=== PATIENT | female | born 1995 | race Caucasian/White ===

== ENCOUNTER 2020-06-19 13:31 | Outpatient (REF) | payer MEDICARE, MEDICAID, SELFPAY | END 2020-06-19 13:32 | disposition home or self-care (01) | LOC: HO.LAB 13:31 | PROVIDERS: PCP Internal Medicine; Visit Provider Internal Medicine | DX: Z20.828 Contact with and (suspected) exposure to other viral communicable diseases (principal) | CPT/HCPCS: 87635 ==

== ENCOUNTER 2021-04-06 15:58 | Outpatient (REF) | payer MEDICARE, MEDICAID, SELFPAY ==
[2021-04-06 18:02] LABS: Glucose Urine UA NEG (NEG); Leukocyte Esterase Urine 1+ (NEG); Nitrite Urine NEG (NEG); Specific Gravity - Urine <= 1.005 (1.005-1.025); UACC Culture Trigger YES; Urine Blood TRACE (NEG); Urine Ketones NEG (NEG); Urine Protein NEG (NEG-TRACE)
[2021-04-06 18:11] LABS: Appearance Urine CLEAR; Color Urine STRAW
[2021-04-06 19:04] LABS: RBC Urine 0-2 /HPF (0); Squamous Epithelial Cell Urine TRACE /LPF
== END 2021-04-06 15:59 | disposition home or self-care (01) ==
LOC: HO.LAB 15:58
PROVIDERS: Visit Provider Internal Medicine
DX: R30.0 Dysuria (principal)
CPT/HCPCS: 81001; 81003; 87086

== ENCOUNTER 2021-08-11 13:19 | Outpatient (REF) | payer MEDICARE, MEDICAID, SELFPAY ==
[2021-08-11 14:56] LABS: Alanine Aminotransferase 31 U/L (0-31); Anion Gap 13 (12-20); Aspartate Amino Transferase 24 U/L (5-31); Blood Urea Nitrogen 10 mg/dL (9-16); Calcium 9.3 mg/dL (8.4-10.2); Carbon Dioxide 19 mmol/L (22-29); Chloride 111 mmol/L (96-108); Cholesterol 182 mg/dL; Estimated Glomerular Filt Rate > 60; Glucose Fasting 84 mg/dL (60-99); HDL Cholesterol 40 mg/dL; LDL Cholesterol Calculated 99 mg/dl; Sodium 139 mmol/L (135-145); Triglycerides 215 mg/dL
== END 2021-08-11 13:20 | disposition home or self-care (01) ==
LOC: HO.HMGCLDS 13:19
PROVIDERS: PCP Internal Medicine; Visit Provider Internal Medicine
DX: Z00.01 Encounter for general adult medical examination with abnormal findings (principal); F31.9 Bipolar disorder, unspecified; G40.B09 Juvenile myoclonic epilepsy, not intractable, without status epilepticus; I10 Essential (primary) hypertension; E66.9 Obesity, unspecified
CPT/HCPCS: 36415; 80048; 80061; 82306; 84450; 84460

== ENCOUNTER 2022-06-15 10:52 | Outpatient (REF) | payer MEDICARE, MEDICAID, SELFPAY ==
--- NOTE | ~2022-06-15 | XR_ITS ---
EXAMINATION: XR CHEST CLINICAL INFORMATION: Bronchitis COMPARISON: None TECHNIQUE: 2 views of the chest were obtained. FINDINGS: Low lung volumes. No convincing evidence for infiltrate. Lung rodrigues are grossly clear. The cardiac silhouette is within normal limits. The hilar structures do not appear pathologically enlarged. XR/XR chest 2V IMPRESSION: No acute finding.
== END 2022-06-15 10:53 | disposition home or self-care (01) ==
LOC: HO.HMGCX 10:52
PROVIDERS: PCP Internal Medicine; Visit Provider Internal Medicine
DX: J20.9 Acute bronchitis, unspecified (principal)
CPT/HCPCS: 71046

== ENCOUNTER 2022-08-25 09:32 | Outpatient (REF) | payer MEDICARE, MEDICAID, SELFPAY ==
[2022-08-25 13:17] LABS: Alanine Aminotransferase 39 U/L (0-31); Anion Gap 12 (12-20); Aspartate Amino Transferase 32 U/L (5-31); Blood Urea Nitrogen 13 mg/dL (9-16); Calcium 8.9 mg/dL (8.4-10.2); Carbon Dioxide 19 mmol/L (22-29); Chloride 112 mmol/L (96-108); Cholesterol 169 mg/dL; Estimated Glomerular Filt Rate > 60; Glucose Fasting 90 mg/dL (60-99); HDL Cholesterol 38 mg/dL; LDL Cholesterol Calculated 104 mg/dl; Potassium 4.1 mmol/L (3.3-5.1); Sodium 139 mmol/L (135-145); Triglycerides 136 mg/dL
== END 2022-08-25 09:33 | disposition home or self-care (01) ==
LOC: HO.LAB 09:32
PROVIDERS: PCP Internal Medicine; Visit Provider Internal Medicine
DX: Z00.01 Encounter for general adult medical examination with abnormal findings (principal); E55.9 Vitamin D deficiency, unspecified; E66.01 Morbid (severe) obesity due to excess calories; E78.5 Hyperlipidemia, unspecified; H91.93 Unspecified hearing loss, bilateral; F31.9 Bipolar disorder, unspecified; G40.B09 Juvenile myoclonic epilepsy, not intractable, without status epilepticus
CPT/HCPCS: 36415; 80048; 80061; 82306; 84450; 84460

== ENCOUNTER 2023-04-04 15:06 | Outpatient (AMB) | payer MEDICARE, MEDICAID, SELFPAY ==
[2023-04-04 15:27] VITALS: BMI 43.3
--- NOTE | 2023-04-04 15:27 | MHC.OFFVIS ---
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 Pt states that Left LE foot gets very swollen and has pain w/ ambulation worse over 3 months. 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 She notes that it is more so in the calf and ankles. Left more so than right. Denies any history of trauma. She notes that she does have some swelling. In general she leads a sedentary lifestyle. Mostly in her bed in a residential. She now presents for evaluation regarding her swollen extremities. [facility] Medical History Annual visit for general adult medical examination with abnormal findings Bipolar disorder Dyslipidemia Former smoker, stopped smoking in distant past Juvenile myoclonic epilepsy PTSD (post-traumatic stress disorder) Vitamin D deficiency Surgical History No pertinent past surgical history Social History Housing: Other Patient Tobacco Use Status: Former Tobacco user Cigarettes Per Day: 4 e-Cigarette/Vaping Use: Never Used Current occupational status: employed Current occupation: Works at [employer] Current occupational exposures/hazards: No Cognitive needs: No Hearing needs: No Vision needs: No Review of Systems Const All systems reviewed & are unremarkable except as noted in HPI and below Reports no additional complaints ENT Reports Normal hearing present Card Denies chest pain, Denies chest pain at rest, Denies chest pain with activity and Denies pedal edema Resp Denies cough GI Denies abdominal pain Musc Denies abnormal gait, Denies muscle cramps and Denies radiating pain into limb Skin/Breast Denies skin ulcer and Denies wounds Neuro Reports Normal hearing present and Denies abnormal gait Psych Reports no additional complaints Physical Exam Vital Signs: BMI result Body Mass Index 43.3 Const General: cooperative, healthy appearing and comfortable Orientation/consciousness: oriented to person, oriented to place and oriented to time HEENT Head: Yes normal to inspection Neck Neck: Yes normal visual inspection Carotids: no bruits Chest Chest palpation & inspection: normal inspection of the chest Resp Effort & Inspection: normal respiratory effort and able to speak in complete sentences Auscultation: clear to auscultation bilaterally, no crackles, no rales, no rhonchi and no wheezes Cardio Other: Palpable bilateral DP pulses Rate: regular rate Rhythm: regular rhythm Heart sounds: S1 normal heart sound present and S2 normal heart sound present Bruits: no carotid bruits Peripheral pulses: Peripheral pulses 2+ throughout GI Inspection: Yes normal to inspection Skin Wounds: no wounds Hair: normal Neuro General: oriented to person, oriented to place and oriented to time Cranial nerves: Yes CN's II-XII intact bilaterally and Yes Normal hearing present Cognition (Neuro): normal cognition Motor exam (neuro): 5/5 motor strength present throughout Extrem Other: venous exam: +2 edema left greater than right General: No clubbing, No cyanosis and Yes edema Psych Appearance: grossly normal Mental Status: mental status grossly normal Speech and movement: Normal speech and movement present Assessment & Plan Assessment & Plan (1) Varicose veins of left lower extremity with inflammation: Code(s): I83.12 - Varicose veins of left lower extremity with inflammation Plan: In short patient has swollen lower extremities. Unclear what the true etiology of this is and may be related more to her morbid obesity and inactivity. But I have taken the liberty of ordering venous insufficiency testing to rule that out. Should there be any interval issues happy to see her back sooner. Thank you for allowing us to assist in her care. If there are any questions or concerns please do not hesitate to contact us. Orders: Orders US venous duplex LE 1 Week I83.92 - Asymptomatic varicose veins of left lower extremity Coding Level of Care Code New Pt Level 4 (14971) Diagnoses Varicose veins of left lower extremity with inflammation I83.12
== END 2023-04-04 15:44 | disposition home or self-care (01) ==
PROVIDERS: PCP Internal Medicine; Visit Provider Surgery Vascular Surgery
DX: I83.12 Varicose veins of left lower extremity with inflammation (principal)
CPT/HCPCS: 99204

== ENCOUNTER → 2023-04-04 15:06 | Outpatient (BNVA) | payer MEDICARE, MEDICAID, SELFPAY | PROVIDERS: PCP Internal Medicine; Visit Provider Surgery Vascular Surgery | DX: I83.12 Varicose veins of left lower extremity with inflammation (principal); E66.01 Morbid (severe) obesity due to excess calories; Z68.41 Body mass index [BMI] 40.0-44.9, adult | CPT/HCPCS: 99202 ==

== ENCOUNTER 2023-04-24 13:18 | Outpatient (REF) | payer MEDICARE, MEDICAID, SELFPAY ==
--- NOTE | ~2023-04-24 | US_ITS ---
EXAMINATION: US LOWER EXTREMITY VENOUS (REFLUX EXAM), BILATERAL CLINICAL INDICATION: Varicose veins of the left lower extremity COMPARISON: None. TECHNIQUE: Color flow triplex imaging and compression Doppler was performed to evaluate both the deep and the superficial systems bilaterally. To evaluate the superficial system, the examination was performed in the upright position. Color-flow Doppler ultrasound and compression ultrasound were utilized. In addition, maneuvers were utilized to demonstrate reflux. FINDINGS: RIGHT: 1. DEEP VENOUS ULTRASOUND OF THE RIGHT LOWER EXTREMITY: Common Femoral Vein: Compressible, normal respiratory variation and augmented flow. Popliteal Vein: Compressible, normal augmentation. Deep Venous Reflux: There is no evidence of reflux in the deep system in either the common femoral vein or the popliteal vein. There is no evidence of a Knott's cyst. 2. SUPERFICIAL ULTRASOUND WITH DOPPLER OF RIGHT LOWER EXTREMITY: RIGHT GREAT SAPHENOUS VEIN: Saphenofemoral Junction: 10 mm. No reflux. Proximal Thigh: 5 mm. No reflux. Mid Thigh: 5 mm. No reflux. Above Knee: 6 mm. No reflux. Below Knee: 4 mm. No reflux. Mid Calf: 3 mm. No reflux. Ankle: 4 mm. No reflux. DUPLICATED GREAT SAPHENOUS VEIN: None RIGHT SMALL SAPHENOUS VEIN: Proximal: 3 mm. No reflux. Distal: 3 mm. No reflux. PERFORATORS: None LEFT: 1. DEEP VENOUS ULTRASOUND OF THE LEFT LOWER EXTREMITY: Common Femoral Vein: Compressible, normal respiratory variation and augmented flow. Popliteal Vein: Compressible, normal augmentation. Deep Venous Reflux: There is no evidence of reflux in the deep system in either the common femoral vein or the popliteal vein. Incidentally noted popliteal cyst measuring 1.8 x 1.3 x 2.1 cm. 2. SUPERFICIAL ULTRASOUND WITH DOPPLER OF LEFT LOWER EXTREMITY: LEFT GREAT SAPHENOUS VEIN: Saphenofemoral Junction: 12 mm. No reflux. Proximal Thigh: 6 mm. No reflux. Mid Thigh: 5 mm. No reflux. Above Knee: 5 mm. No reflux. Below Knee: 3 mm. No reflux. Mid Calf: 3 mm. No reflux. Ankle: 3 mm. No reflux. DUPLICATED GREAT SAPHENOUS VEIN: None LEFT SMALL SAPHENOUS VEIN: Proximal: 2 mm. No reflux. Distal: 3 mm. No reflux. PERFORATORS: None US/US venous duplex LE BI IMPRESSION: 1. Small bilateral varicosities seen without abnormal reflux within the great or small saphenous veins. 2. Incidentally noted left popliteal cyst measuring 1.8 x 1.3 x 2.1 cm. Abnormal lower extremity venous reflux times: Superficial and deep calf veins: >500 ms Femoropopliteal veins: >1000 ms Perforating veins: >350 ms Sharron N, Elizabeth J, Wing L, Christin AK, Haroon SS, Venkata Spencer, Hedy WH. Definition of venous reflux in lower-extremity veins.J Vasc Surg. 2003; [phone].
== END 2023-04-24 13:19 | disposition home or self-care (01) ==
LOC: HO.US 13:18
PROVIDERS: PCP Internal Medicine; Visit Provider Surgery Vascular Surgery
DX: I83.92 Asymptomatic varicose veins of left lower extremity (principal)
CPT/HCPCS: 93970

== ENCOUNTER 2023-05-23 15:00 | Outpatient (AMB) | payer MEDICARE, MEDICAID, SELFPAY ==
--- NOTE | 2023-05-23 15:01 | A.OFFVIS_ITS ---
Intake Intake Visit Reasons: follow up s/p US Intake Note: follow up US 04/24/23 for Left LE swelling and pain, worse with ambulation and keeps getting worse, when sitting it feels like she pinched a nerve Accompanied by: supervisor housecleaner Allergies Ibuprofen Allergy (Unknown, Uncoded 05/23/23 15:06) rash HPI follow up s/p US HPI Details Very pleasant 28-year-old female presents for follow-up regarding swollen lower extremities. She has had venous insufficiency testing. She repo rts it is more so in the calf in ankles left more so than right. She in general leads a very sedentary lifestyle. She gets no exercise. She is in a custodial. She now presents to us for follow-up. [facility] Medical History Former smoker, stopped smoking in distant past Dyslipidemia Annual visit for general adult medical examination with abnormal findings PTSD (post-traumatic stress disorder) Vitamin D deficiency Bipolar disorder Juvenile myoclonic epilepsy Surgical History No pertinent past surgical history Social History Housing: Other Patient Tobacco Use Status: Former Tobacco user Cigarettes Per Day: 4 e-Cigarette/Vaping Use: Never Used Current occupational status: employed Current occupation: Works at [employer] Current occupational exposures/hazards: No Cognitive needs: No Hearing needs: No Vision needs: No Review of Systems Const All systems reviewed & are unremarkable except as noted in HPI and below Reports no additional complaints ENT Reports Normal hearing present Card Denies chest pain, Denies chest pain at rest, Denies chest pain with activity and Denies pedal edema Resp Denies cough GI Denies abdominal pain Musc Denies abnormal gait, Denies muscle cramps and Denies radiating pain into limb Skin/Breast Denies skin ulcer and Denies wounds Neuro Reports Normal hearing present and Denies abnormal gait Psych Reports no additional complaints Physical Exam Const General: cooperative, healthy appearing and comfortable Orientation/consciousness: oriented to person, oriented to place and oriented to time HEENT Head: Yes normal to inspection Neck Neck: Yes normal visual inspection Carotids: no bruits Chest Chest palpation & inspection: normal inspection of the chest Resp Effort & Inspection: normal respiratory effort and able to speak in complete sentences Auscultation: clear to auscultation bilaterally, no crackles, no rales, no rhonchi and no wheezes Cardio Rate: regular rate Rhythm: regular rhythm Heart sounds: S1 normal heart sound present and S2 normal heart sound present Bruits: no carotid bruits Peripheral pulses: Peripheral pulses 2+ throughout GI Inspection: Yes normal to inspection Skin Wounds: no wounds Hair: normal Neuro General: oriented to person, oriented to place and oriented to time Cranial nerves: Yes CN's II-XII intact bilaterally and Yes Normal hearing present Cognition (Neuro): normal cognition Motor exam (neuro): 5/5 motor strength present throughout Extrem Other: venous exam: +2 edema General: No clubbing, No cyanosis and Yes edema Psych Appearance: grossly normal Mental Status: mental status grossly normal Speech and movement: Normal speech and movement present Results Reviewed Results Reviewed: Brief summary of venous insufficiency testing is as follows: right great saphenous vein: negative right small saphenous vein: negative right accessory vein: none present left great saphenous vein: negative left small saphenous vein: negative left accessory vein: none present Please note there is no evidence of any venous aneurysms or significant tortuosity Assessment & Plan Assessment & Plan (1) Swelling of left foot: Code(s): M79.89 - Other specified soft tissue disorders Plan: In short patient has swollen lower extremities. She is negative for any significant venous insufficiency. I did have an extended discussion with her about risk factor modification and the importance of ambulation. We did review with her case management associate options for walking and exercise especially in her custodial. I do believe most of this swelling is related to her obesity and sedentary relate style. She did agree to try to become more active. Once again it does not appear to be vascular in nature as she does have palpable arterial pulses and negative for any significant venous insufficiency testing. We did discuss routine conservative measures including compression elevation and exercise. She will follow up with us on an as-needed basis. Thank you for allowing us to assist in her care. If there are any questions or concerns please do not hesitate to contact us. Coding Level of Care Code Est Pt Level 4 (26339) Diagnoses Swelling of left foot M79.89
== END 2023-05-23 15:22 | disposition home or self-care (01) ==
PROVIDERS: PCP Internal Medicine; Visit Provider Surgery Vascular Surgery
DX: M79.89 Other specified soft tissue disorders (principal)
CPT/HCPCS: 99213

== ENCOUNTER → 2023-05-23 15:00 | Outpatient (BNVA) | payer MEDICARE, MEDICAID, SELFPAY | PROVIDERS: PCP Internal Medicine; Visit Provider Surgery Vascular Surgery | DX: M79.89 Other specified soft tissue disorders (principal) | CPT/HCPCS: 99212 ==

== ENCOUNTER 2024-08-24 09:18 | Emergency (ER) | payer MEDICARE, MEDICAID, SELFPAY ==
--- NOTE | ~2024-08-24 | CT_ITS ---
EXAMINATION: CT HEAD WITHOUT CONTRAST CLINICAL INFORMATION: Change in mental status. COMPARISON: None available. TECHNIQUE: Contiguous axial imaging was performed from the skull base to vertex without intravenous administration of contrast. This CT examination was performed using dose optimization techniques as appropriate, variously including the following: *Automated exposure control *Adjustment of mA and/or kV according to patient size (this includes techniques or standardized protocols for targeted exams where dose is matched to indication/reason for exam; i.e. extremities or head) *Use of iterative reconstruction technique DLP: Findings 4 mGy-cm FINDINGS: There is no mass hemorrhage or cerebral edema. No extra-axial fluid collections. Madrigal-white differentiation normal. Soft tissues and osseous structures normal. Sinuses clear. Mastoid air cells clear. CT/CT head/brain wo IV con IMPRESSION: No acute intracranial pathology. Electronically signed by: Ambrosio Maria MD 08/24/2024 02:22 PM JUDD
[2024-08-24 09:22] VITALS: PULSE 118; O2SAT 98
[2024-08-24 09:25] VITALS: BP 124/80; PULSE 108; RESP 16; TEMP 36.9; O2SAT 96; BMI 31.3
[2024-08-24 09:29] LABS: Glucose, Whole Blood 110 mg/dL (60-115)
--- NOTE | 2024-08-24 09:42 | ECG_ITS ---
Test Reason : SEIZURE Blood Pressure : / mmHG Vent. Rate : 097 BPM Atrial Rate : 097 BPM P-R Int : 154 ms QRS Dur : 088 ms QT Int : 354 ms P-R-T Axes : 055 059 040 degrees QTc Int : 449 ms Normal sinus rhythm Normal ECG No previous ECGs available Referred By: Kylee Huang Electronically Signed By:ROSA MARIA MACEDO MD
--- NOTE | 2024-08-24 09:51 | ED.AMS ---
HPI - Altered Mental Status General Chief Complaint: Altered Mental Status Stated Complaint: [facility] HOME STAFF STS NOT AT BASELINE PER EMS Time Seen by Provider: 08/24/24 09:19 Source: patient, EMS and other (caregiver) Mode of arrival: EMS Limitations: altered mental status History of Present Illness ED Provider: MANDEEP HPI narrative: 29 yo female with PMH of bipolar, HLD, PTSD, juvenile myoclonic epilepsy, staff at bedside unclear about meds but states she is compliant - someone is coming from detention with the list. Per staff patient was in bathroom and not responding, unclear how they got the door open with staff and EMS now she is still not at baseline. They had a normal day yesterday went shopping. Patient has abrasions to both sides of the tongue. Patient states she doesn't know if she had a seizure. MD complaint: altered mental status Onset (ago): hour(s) (this AM) Timing confirmed by: caregiver Severity: moderate Consistency of symptoms: unknown Context: seizure disorder Associated symptoms: denies other symptoms Related Data Home Medications ?Medication ?Instructions ?Recorded ?Confirmed norethindrone 1 mg-ethinyl 1 tab PO DAILY 12/03/20 01/19/23 estradiol 35 mcg tablet quetiapine 300 mg tablet,extended 300 mg PO BEDTIME 12/03/20 01/19/23 release 24 hr topiramate 200 mg tablet (Topamax) 200 mg PO BID 01/04/22 01/19/23 levetiracetam 1,000 mg 500 mg PO ONCE 05/10/22 01/19/23 tablet,extended release 24 hr melatonin 3 mg capsule 6 mg PO BEDTIME PRN 07/28/22 01/19/23 Previous Rx's ?Medication ?Instructions ?Recorded nystatin 100,000 unit/gram topical 1 appl topical DAILY PRN rash #60 05/10/22 powder grams clobetasol 0.05 % topical cream 1 appl topical BID 2 weeks #15 01/19/23 grams acetaminophen 325 mg tablet 650 mg (2 x 325 mg) PO Q6H PRN for 04/05/23 pain, cramps, fever >101 #30 tabs cholecalciferol (vitamin D3) 50 50 mcg PO DAILY #90 caps 07/13/23 mcg (2,000 unit) capsule Allergies Allergy/AdvReac Type Severity Reaction Status Date / Time Ibuprofen Allergy Unknown rash Uncoded 12/14/24 09:26 Review of Systems Review of Systems: ROS unable to be obtained due to altered mental status [facility] Past Medical History Attestation statement: The following information was validated with the patient. Source: old records reviewed Medical History Former smoker, stopped smoking in distant past Dyslipidemia Annual visit for general adult medical examination with abnormal findings PTSD (post-traumatic stress disorder) Vitamin D deficiency Bipolar disorder Juvenile myoclonic epilepsy Surgical History No pertinent past surgical history Social History Social History Housing: Other Patient Tobacco Use Status: Former Tobacco user Cigarettes Per Day: 4 Smoked in Last 30 Days: No e-Cigarette/Vaping Use: Never Used Use of substances other than those prescribed or required for medical reasons: No Advance Directives: No Advance Directives Information Provided: Yes Patient : No Current occupational status: employed Current occupation: Works at [employer] Current occupational exposures/hazards: No Cognitive needs: No Hearing needs: No Vision needs: No Physical Exam ED Vital Signs: Vital Signs - 24 hr 08/24/24 09:25 08/24/24 10:26 08/24/24 13:15 Temperature 98.4 F 98.4 F Pulse Rate 108 H 87 107 H Respiratory Rate 16 16 26 H Blood Pressure 124/80 118/73 129/88 Pulse Oximetry 96 97 94 Oxygen Delivery Method Room Air Room Air Room Air BMI result Body Mass Index 31.3 Appearance: Appears tired and is confused shakes yes or no and says her name softly. No acute distress. Eyes: Pupils equal, round and reactive to light. ENT: Pharynx both sides of tongue abrasions noted otherwise atraumatic Neck: Normal inspection. Neck supple. CVS: Normal heart rate and rhythm. Pulses normal. Respiratory: No respiratory distress. Breath sounds normal. Abdomen: Soft and non-tender. Skin: Skin warm and dry. Normal skin color. Normal skin turgor. Extremities: No lower extremity edema. No calf ttp Neuro: confused not speaking much, appears postictal No motor deficit. No sensory deficit. Course Course Course Narrative: patient is on topamax 200mg BID Reevaluation(s) Reevaluation #1: returning to her baseline, wants to eat and drink Reevaluation #2: dual dx per CARE team Medications Administered Discontinued Medications Generic Name Dose Route Start Last Admin Trade Name Neris PRN Reason Stop Dose Admin Lorazepam 1 mg 08/24/24 09:41 08/24/24 10:08 Lorazepam 2 Mg/Ml Vial IVPUSH 08/24/24 09:42 1 mg STAT STA Administration Medical Decision Making Medical Decision Making [facility] Narrative: 29 yo female with PMH of bipolar, HLD, PTSD, juvenile myoclonic epilepsy here with AMS and event this AM I suspect she had a seizure based off her tongue abrasions that are bilateral and symmetric - she has no other signs of head trauma at this time labs, CT head, IV ativan and pending full med recc from facility. They ensure normal day yesterday and med compliance. Differential Diagnosis Differential Diagnoses: The differential diagnosis associated with the presentation includes seizures, lyte abnormality, head injury Admission/Observation Consideration of admission/observation: Escalation of care including admission/observation considered at baseline stable for DC Lab Data [facility] Lab Attestation statement: I reviewed the patient's lab results. 08/24/24 10:05 08/24/24 11:54 Labs: Lab Results 08/24/24 08/24/24 08/24/24 Range/Units 09:26 10:05 11:54 WBC 9.6 (4.8-10.8) X10*3/uL RBC 4.11 L (4.20-5.50) X10*6/uL Hgb 12.4 (12.0-16.0) g/dl Hct 36.8 L (37.0-47.0) % MCV 89.5 (80.0-98.0) fL MCH 30.2 (27.0-33.0) pg MCHC 33.7 (31.0-35.0) g/dl RDW 14.0 (11.0-16.0) % Plt Count 312 (160-400) X10*3/uL MPV 8.4 L (9.4-12.3) fL Immature Gran % (Auto) 0.4 (0.0-0.4) % Neut % (Auto) 74.5 H (45-73) % Lymph % (Auto) 19.1 L (20-40) % [place] % (Auto) 4.8 (2-11) % Eos % (Auto) 0.9 (0-4) % Baso % (Auto) 0.3 (0-2) % Lymph # (Auto) 1.8 (1.2-4.9) X10*3/uL [place] # (Auto) 0.5 (0.1-1.2) X10*3/uL Eos # (Auto) 0.1 (0.0-0.4) X10*3/uL Baso # (Auto) 0.0 (0.0-0.2) X10*3/uL Abs Immat Gran (auto) 0.04 H (0.00-0.03) X10*3/uL Absolute Neuts (auto) 7.2 (2.0-8.3) x10*3/uL Absolute Nucleated RBC 0.000 (0.0-0.012) X10*3/uL Nucleated RBC % (auto) 0.0 (0.0-0.2) /100WBC Sodium 141 (135-145) mmol/L Potassium 4.0 (3.3-5.1) mmol/L Chloride 114 H (96-108) mmol/L Carbon Dioxide 21 L (22-29) mmol/L Anion Gap 10 L (12-20) BUN 13 (9-16) mg/dL Creatinine 0.99 (0.5-1.4) mg/dL Estim Creat Clear Calc 98.3 Estimated GFR > 60 POC Glucose 110 (60-115) mg/dL Random Glucose 93 (60-115) mg/dL Calcium 8.3 L D (8.4-10.2) mg/dL Magnesium 2.2 (1.6-2.6) mg/dL Total Bilirubin 0.2 (0.0-1.0) mg/dL Direct Bilirubin < 0.2 (0.0-0.5) mg/dL AST 23 (5-31) U/L ALT 25 (0-31) U/L Alkaline Phosphatase 70 (39-117) U/L Total Protein 7.9 (6.5-8.0) g/dL Albumin 4.2 (3.5-5.0) g/dL Lipase 25 (8-78) U/L Beta HCG, Quant < 2 mIU/mL Urine Color Urine Appearance Urine pH (5.0-9.0) Ur Specific [place] (1.005-1.025) Urine Protein (Neg-Trace) mg/dL Urine Glucose (UA) (Negative) mg/dL Urine Ketones (Negative) mg/dL Urine Blood (Negative) Urine Nitrite (Negative) Ur Leukocyte Esterase (Negative) Urine RBC (0-2) /HPF Urine WBC (0-5) /HPF Ur Squamous Epith Cells (0-2) /HPF Urine Bacteria (None Seen) Hyaline Casts (0-2) /LPF Influenza Type A (PCR) NEGATIVE (Negative) Influenza Type B (PCR) NEGATIVE (Negative) RSV RNA Qual (PCR) NEGATIVE (Negative) SARS-CoV-2 RNA (RT-PCR) NEGATIVE (Negative) 08/24/24 Range/Units 13:48 WBC (4.8-10.8) X10*3/uL RBC (4.20-5.50) X10*6/uL Hgb (12.0-16.0) g/dl Hct (37.0-47.0) % MCV (80.0-98.0) fL MCH (27.0-33.0) pg MCHC (31.0-35.0) g/dl RDW (11.0-16.0) % Plt Count (160-400) X10*3/uL MPV (9.4-12.3) fL Immature Gran % (Auto) (0.0-0.4) % Neut % (Auto) (45-73) % Lymph % (Auto) (20-40) % [place] % (Auto) (2-11) % Eos % (Auto) (0-4) % Baso % (Auto) (0-2) % Lymph # (Auto) (1.2-4.9) X10*3/uL [place] # (Auto) (0.1-1.2) X10*3/uL Eos # (Auto) (0.0-0.4) X10*3/uL Baso # (Auto) (0.0-0.2) X10*3/uL Abs Immat Gran (auto) (0.00-0.03) X10*3/uL Absolute Neuts (auto) (2.0-8.3) x10*3/uL Absolute Nucleated RBC (0.0-0.012) X10*3/uL Nucleated RBC % (auto) (0.0-0.2) /100WBC Sodium (135-145) mmol/L Potassium (3.3-5.1) mmol/L Chloride (96-108) mmol/L Carbon Dioxide (22-29) mmol/L Anion Gap (12-20) BUN (9-16) mg/dL Creatinine (0.5-1.4) mg/dL Estim Creat Clear Calc Estimated GFR POC Glucose (60-115) mg/dL Random Glucose (60-115) mg/dL Calcium (8.4-10.2) mg/dL Magnesium (1.6-2.6) mg/dL Total Bilirubin (0.0-1.0) mg/dL Direct Bilirubin (0.0-0.5) mg/dL AST (5-31) U/L ALT (0-31) U/L Alkaline Phosphatase (39-117) U/L Total Protein (6.5-8.0) g/dL Albumin (3.5-5.0) g/dL Lipase (8-78) U/L Beta HCG, Quant mIU/mL Urine Color Yellow Urine Appearance Clear Urine pH 6.5 (5.0-9.0) Ur Specific [place] 1.020 (1.005-1.025) Urine Protein Trace (Neg-Trace) mg/dL Urine Glucose (UA) Negative (Negative) mg/dL Urine Ketones Negative (Negative) mg/dL Urine Blood Small (1+) H (Negative) Urine Nitrite Negative (Negative) Ur Leukocyte Esterase Negative (Negative) Urine RBC 0-2 (0-2) /HPF Urine WBC 0-5 (0-5) /HPF Ur Squamous Epith Cells 3-5 (0-2) /HPF Urine Bacteria None Seen (None Seen) Hyaline Casts 0-2 (0-2) /LPF Influenza Type A (PCR) (Negative) Influenza Type B (PCR) (Negative) RSV RNA Qual (PCR) (Negative) SARS-CoV-2 RNA (RT-PCR) (Negative) Independent Interpretation I performed an independent interpretation of an: EKG and CT Scan (no ICH) Interpretation: Rate: 97 Rhythm: NSR [place]: normal Normal P waves. Normal JASWANT. Normal QRS complex. ST T wave : normal no TRAVON qTC: 449 prior studies: no acute ischemia The study has been interpreted contemporaneously by me. . Radiology Impression Discussion of test interpretation with radiology: I have reviewed the radiologist's reading. Independent Historian Clinical information obtained from an independent historian. History obtained from or confirmed by: EMS and Other External Record Review External record reviewed: Outpatient record Discharge Plan Discharge Clinical Impression: Seizure Patient Disposition: Home, Self-Care Instructions: Epilepsy (ED) Additional Instructions: labs and CT scan of head are normal no acute findings otday suspect seizure she must be with responsible adult at all times, no swimming alone, no taking baths (showers are okay), cooking over open flame please call her doctor or neurologist Monday return for any further seizure activity Prescriptions: No Action acetaminophen 325 mg tablet 650 mg PO Q6H PRN (Reason: for pain, cramps, fever >101) Qty: 30 5RF cholecalciferol (vitamin D3) 50 mcg (2,000 unit) capsule 50 mcg PO DAILY Qty: 90 1RF levetiracetam 1,000 mg tablet extended release 24 hr 500 mg PO ONCE quetiapine 300 mg tablet extended release 24 hr 300 mg PO BEDTIME Nortrel 1/35 (28) 1-35 mg-mcg tablet 1 tab PO DAILY nystatin 100,000 unit/gram powder 1 appl topical DAILY PRN (Reason: rash) Qty: 60 1RF clobetasol 0.05 % cream 1 appl topical BID 14 Days Qty: 15 0RF topiramate [Topamax] 200 mg tablet 200 mg PO BID melatonin 3 mg capsule 6 mg PO BEDTIME PRN Print Language: Setswana
[2024-08-24] MEDS: LORazepam 2 MG/ML VIAL 1 MG IVPUSH (10:08)
[2024-08-24 10:10] LABS: MANUAL DIFF FLAG NO
[2024-08-24 10:16] LABS: Basophils Percent Auto 0.3 % (0-2); Eosinophils Absolute Auto 0.1 X10*3/uL (0.0-0.4); Eosinophils Percent Auto 0.9 % (0-4); Hematocrit 36.8 % (37.0-47.0); Hemoglobin 12.4 g/dl (12.0-16.0); Imm Gran Abs Auto 0.04 X10*3/uL (0.00-0.03); Imm Gran Pct Auto 0.4 % (0.0-0.4); Lymphocytes Absolute Auto 1.8 X10*3/uL (1.2-4.9); Lymphocytes Percent Auto 19.1 % (20-40); Mean Corpuscular HGB Conc 33.7 g/dl (31.0-35.0); Mean Corpuscular Hemoglobin 30.2 pg (27.0-33.0); Mean Corpuscular Volume 89.5 fL (80.0-98.0); Mean Platelet Volume 8.4 fL (9.4-12.3); Monocytes Absolute Auto 0.5 X10*3/uL (0.1-1.2); Monocytes Percent Auto 4.8 % (2-11); Neutrophils Absolute Auto 7.2 x10*3/uL (2.0-8.3); Neutrophils Percent Auto 74.5 % (45-73); Platelet Count 312 X10*3/uL (160-400); Red Blood Count 4.11 X10*6/uL (4.20-5.50); White Blood Count 9.6 X10*3/uL (4.8-10.8)
--- NOTE | 2024-08-24 10:19 | PC.NURSE ---
Pt presents to ED via EMS from correction, per staff pt was found locked in bathroom this morning not responding. Now is not at her baseline (normally independent/ ambulatory, A&OX4, interactive), more lethargic and not answering questions well. Does have hx of seizures and is unknown if she had one this morning. Takes Topiramax 200mg BID, as far as staff knows has been med compliant. Alert and oriented to person only, appears postictal. Breathing even and unlabored. NSR on bedside diagnostic cardiac sonographer.
--- NOTE | 2024-08-24 10:24 | PC.NURSE ---
Seizure pads in place. N staff member at bedside
[2024-08-24 10:26] VITALS: BP 118/73; PULSE 87; RESP 16; O2SAT 97
[2024-08-24 10:47] LABS: Influenza A PCR NEGATIVE (Negative); Influenza B PCR NEGATIVE (Negative); Resp Syncy Virus RNA Qual PCR NEGATIVE (Negative); SARS COV2 PCR INHOUSE NEGATIVE (Negative)
[2024-08-24 12:52] LABS: Alanine Aminotransferase 25 U/L (0-31); Albumin Level 4.2 g/dL (3.5-5.0); Alkaline Phosphatase 70 U/L (39-117); Anion Gap 10 (12-20); Aspartate Amino Transferase 23 U/L (5-31); Bilirubin Direct < 0.2 mg/dL (0.0-0.5); Bilirubin Total 0.2 mg/dL (0.0-1.0); Blood Urea Nitrogen 13 mg/dL (9-16); Calcium 8.3 mg/dL (8.4-10.2); Carbon Dioxide 21 mmol/L (22-29); Chloride 114 mmol/L (96-108); Creatinine Clr Calc Pharmacy 98.3; Estimated Glomerular Filt Rate > 60; Glucose Random 93 mg/dL (60-115); HCG Quantitative < 2 mIU/mL; Lipase 25 U/L (8-78); Magnesium 2.2 mg/dL (1.6-2.6); Sodium 141 mmol/L (135-145); Total Protein 7.9 g/dL (6.5-8.0)
[2024-08-24 13:15] VITALS: BP 129/88; PULSE 107; RESP 26; TEMP 36.9; O2SAT 94
[2024-08-24 13:55] LABS: Appearance Urine Clear; Color Urine Yellow; Glucose Urine UA Negative (Negative); Leukocyte Esterase Urine Negative (Negative); Nitrite Urine Negative (Negative); PH 6.5 (5.0-9.0); UMIC TRIGGER UACC YES; Urine Blood Small (1+) (Negative); Urine Ketones Negative (Negative); Urine Protein Trace mg/dL (Neg-Trace)
[2024-08-24 14:02] LABS: Bacteria Urine None Seen (None Seen); Hyaline Casts Urine 0-2 /LPF (0-2); RBC Urine 0-2 /HPF (0-2); WBC Urine 0-5 /HPF (0-5)
[2024-08-24 15:00] VITALS: BP 126/76; PULSE 98; RESP 20; TEMP 36.9; O2SAT 98
== END 2024-08-24 15:02 | disposition home or self-care (01) ==
PROVIDERS: Emergency Provider Emergency Medicine
DX: R56.9 Unspecified convulsions (principal); E78.5 Hyperlipidemia, unspecified; E55.9 Vitamin D deficiency, unspecified; F31.9 Bipolar disorder, unspecified; F43.10 Post-traumatic stress disorder, unspecified; Z87.891 Personal history of nicotine dependence; Z03.818 Encounter for observation for suspected exposure to other biological agents ruled out; Z79.899 Other long term (current) drug therapy
CPT/HCPCS: 0241U; 36415; 70450; 80048; 80076; 81001; 82947; 83690; 83735; 84702; 85025; 93005; 96374; 99284; 99285; J2060

== ENCOUNTER → 2024-08-24 09:42 | Outpatient (BNV) | payer MEDICARE, MEDICAID, SELFPAY | PROVIDERS: Emergency Provider Emergency Medicine; Visit Provider Internal Medicine Cardiovascular Disease | DX: R41.82 Altered mental status, unspecified (principal) | CPT/HCPCS: 93010 ==

== ENCOUNTER 2025-03-11 09:47 | Emergency (ER) | payer MEDICARE, MEDICAID, SELFPAY ==
[2025-03-11 09:56] VITALS: BP 114/74; BP 126/65; PULSE 112; PULSE 130; RESP 24; TEMP 36.8; O2SAT 97; O2SAT 99; BMI 32.1
--- NOTE | 2025-03-11 10:09 | ED.SEIZURE ---
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 presented to the ED after experiencing a witnessed seizure without fall on bus. She arrived via EMS with normal point of care glucose. Patient was postictal when EMS arrived however she appears back to her baseline now. Per patient she has not missed any doses and had a banana for breakfast this morning. Patient did not soil herself but does feel a tongue bite. 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 Seizure time is unknown unable to obtained from EMS. Patient can not recall the seizure event itself which is not unusual for her. She is denying any pain in her body no chest pain shortness of breath no urinary symptoms or chance of she does not feel nauseous no vomiting diarrhea or recent illnesses. Prior to this patient does not recall her last breakthrough seizure. Patient does not recall taking Keppra in quite a long time. Chart review done patient was last seen for seizure this past August 2024. As his presentation was did not width unwitnessed and behind a bathroom door patient had a CT scan done as well of the head with no bleed as well as normal labs and was discharged home after as she was back to her baseline, no admit. MD complaint: seizure Description of Episode: loss of consciousness and post-event confusion Witnessed: Yes - by Bystander Trauma: No Seizure History: Yes Place: on bus Possible Precipitating Event: none Associated symptoms: denies other symptoms Treatments prior to arrival: none Related Data Home Medications ?Medication ?Instructions ?Recorded ?Confirmed norethindrone 1 mg-ethinyl 1 tab PO DAILY 12/03/20 01/19/23 estradiol 35 mcg tablet quetiapine 300 mg tablet,extended 300 mg PO BEDTIME 12/03/20 01/19/23 release 24 hr topiramate 200 mg tablet (Topamax) 200 mg PO BID 01/04/22 01/19/23 levetiracetam 1,000 mg 500 mg PO ONCE 05/10/22 01/19/23 tablet,extended release 24 hr melatonin 3 mg capsule 6 mg PO BEDTIME PRN 07/28/22 01/19/23 Previous Rx's ?Medication ?Instructions ?Recorded nystatin 100,000 unit/gram topical 1 appl topical DAILY PRN rash #60 05/10/22 powder grams clobetasol 0.05 % topical cream 1 appl topical BID 2 weeks #15 01/19/23 grams acetaminophen 325 mg tablet 650 mg (2 x 325 mg) PO Q6H PRN for 04/05/23 pain, cramps, fever >101 #30 tabs cholecalciferol (vitamin D3) 50 50 mcg PO DAILY #90 caps 07/13/23 mcg (2,000 unit) capsule Allergies Allergy/AdvReac Type Severity Reaction Status Date / Time Ibuprofen Allergy Unknown rash Uncoded 03/11/25 10:01 Review of Systems Review of Systems: Yes all other systems are reviewed and are negative PMFSH Past Medical History Attestation statement: The following information was validated with the patient. Source: old records reviewed and nursing notes reviewed Medical History Former smoker, stopped smoking in distant past Dyslipidemia Annual visit for general adult medical examination with abnormal findings PTSD (post-traumatic stress disorder) Vitamin D deficiency Bipolar disorder Juvenile myoclonic epilepsy Surgical History No pertinent past surgical history Social History Social History Housing: Other Patient Tobacco Use Status: Former Tobacco user Cigarettes Per Day: 4 Smoked in Last 30 Days: No e-Cigarette/Vaping Use: Never Used Use of substances other than those prescribed or required for medical reasons: No Advance Directives: No Advance Directives Information Provided: Yes Current occupational status: employed Current occupation: Works at [employer] Current occupational exposures/hazards: No Cognitive needs: No Hearing needs: No Vision needs: No Physical Exam Vital Signs: Vital Signs: Last Vital Signs Temp 98.2 F 03/11/25 17:26 Pulse 97 03/11/25 17:26 Resp 17 03/11/25 17:26 BP 117/75 03/11/25 17:26 Pulse Ox 98 03/11/25 17:26 O2 Del Method Room Air 03/11/25 17:26 BMI result Body Mass Index 32.1 General: Appears in no acute distress, appears well nourished body habitus is morbid obesity, appears stated age. No septic or ill-appearing. Vitals reviewed normal, PMH/Social and Surgical hx reviewed including allergies and current medications. - reviewed for prior visits here and read as it pertains a similar chief complaint. Head: Normocephalic, no obvious trauma or skin lesions noted. Patient has not self soil she does have a small superficial but more from like he her lateral incisor in her left lateral tongue no bleeding or visible subcutaneous tissue suturing not indicated Eyes: EOMI ENMT: moist oral mucosa Neck: trachea midline no midline tenderness step-offs or deformities of entire spine moving neck without difficulty. Uvula is midline Cardiovascular: peripheral perfusion normal, Regular heart rate Respiratory: no respiratory distress, lungs clear to auscultation bilaterally no chest wall tenderness Abdomen: nondistended Extremities: warm and moving without difficulty unless otherwise detailed in physical exam if applicable. Psych: Cooperative Neuro: Alert and oriented. Cranial nerves II through XII intact, speech fluent and appropriate, no eabcwm-jpau-jisigz ataxia, no cday-by-xldy ataxia, no palmar drift, strength 4+ throughout, sensory intact throughout to soft touch and equal bilaterally Course Reevaluation(s) Reevaluation #1: Mild gap of acidosis, expected in setting of seizure. Will repeat BMP 4 hours from now. Time: 11:15 Date: 03/11/25 Provider: Little Bhardwaj PA-C Physician observation started at 11:15 for repeat of BMP to ensure gap closure. Patient will continue to be monitored. Time: 16:25 Reevaluation #2: Time: 16:25 Date: 03/11/25 Provider: Little Bhardwaj PA-C Physician observation ended at 1625. Patient has been cleared for discharge by the CARE team. Will follow up as an outpatient. Medications Administered Discontinued Medications Generic Name Dose Route Start Last Admin Trade Name Freq PRN Reason Stop Dose Admin Diazepam 5 mg 03/11/25 10:33 03/11/25 10:48 Diazepam 10 Mg/2 Ml Cartridge IVPUSH 03/11/25 10:34 5 mg STAT STA Administration Medical Decision Making Medical Decision Making [facility] Narrative: 30-year-old female with history of juvenile myoclonic seizure disorder presenting to ED after having a witnessed seizure without fall. She arrived in a some what postictal state upon arrival per nursing staff in it. She is slightly be that way upon my 1st minute of exam however it seemed to have ended during this time and I was able to do an adequate history and physical of her. She does have small superficial bite moreno on the lateral portions of her tongue which do not require any suture repair. She did not soil herself. There was no head trauma or complete follow the ground. She has negative via nexus criteria for cervical spine fracture not collared cleared. She has no infectious symptoms and has a benign otherwise reassuring exam other than the tongue. Obese body habitus but no other signs of trauma present. She has a nonfocal neuro exam, GCS of 15 A&[address] not indicated today as there is no complete fall to the ground and she has a known seizure history. Ryan on basic labs to screen for potential electrolyte abnormality but low clinical concern for infectious etiology. As patient is not on Keppra loading dose will be deferred. Patient was given 1 mg of Ativan during her last ED stay after having a postictal state. As there is current ativan shortage, will do 5mg IV diazepam. 1107: The patient remains alert oriented and back to baseline with no ongoing symptoms. All other labs other than mentioned above remains intact no concern for toxic ingestion infection or trauma. The low carbon dioxide and high chloride are cytu-sv-zmqrumxr and transient possibly from her post ictal lactic acidosis. Though patient patient and physician all labs and recheck her BMP in a few hours to confirm normalization of CO2 and chloride. 411: Patient has remained at her baseline with no repeat of myoclonic seizure activity. Patient's repeat BMP- CO2 improved. Patient is stable for discharge. Differential Diagnosis Differential Diagnoses: The differential diagnosis associated with the presentation includes seizures, electrolyte imbalance Admission/Observation Consideration of admission/observation: Escalation of care including admission/observation considered Lab Data MDM Lab Attestation statement: I reviewed the patient's lab results. Low bicarbonate suggesting metabolic acidosis either the body had access acid or as lost too much base this is likely due to seizure and not hypoxia or other infection. She has no evidence of renal dysfunction or toxic ingestion. Given the slight elevation in chloride this is likely compensatory mechanism. 03/11/25 10:10 03/11/25 15:50 Labs: Lab Results 03/11/25 03/11/25 Range/Units 10:10 15:50 WBC 8.0 (4.8-10.8) X10*3/uL RBC 4.12 L (4.20-5.50) X10*6/uL Hgb 12.6 (12.0-16.0) g/dl Hct 38.6 (37.0-47.0) % MCV 93.7 (80.0-98.0) fL MCH 30.6 (27.0-33.0) pg MCHC 32.6 (31.0-35.0) g/dl RDW 13.7 (11.0-16.0) % Plt Count 292 (160-400) X10*3/uL MPV 8.8 L (9.4-12.3) fL Immature Gran % (Auto) 0.2 (0.0-0.4) % Neut % (Auto) 63.8 (45-73) % Lymph % (Auto) 28.4 (20-40) % [place] % (Auto) 5.7 (2-11) % Eos % (Auto) 1.4 (0-4) % Baso % (Auto) 0.5 (0-2) % Lymph # (Auto) 2.3 (1.2-4.9) X10*3/uL [place] # (Auto) 0.5 (0.1-1.2) X10*3/uL Eos # (Auto) 0.1 (0.0-0.4) X10*3/uL Baso # (Auto) 0.0 (0.0-0.2) X10*3/uL Abs Immat Gran (auto) 0.02 (0.00-0.03) X10*3/uL Absolute Neuts (auto) 5.1 (2.0-8.3) x10*3/uL Absolute Nucleated RBC 0.000 (0.0-0.012) X10*3/uL Nucleated RBC % (auto) 0.0 (0.0-0.2) /100WBC Sodium 140 140 (135-145) mmol/L Potassium 4.0 4.2 (3.3-5.1) mmol/L Chloride 115 H 114 H (96-108) mmol/L Carbon Dioxide 13 L 20 L (22-29) mmol/L Anion Gap 16 10 L (12-20) BUN 14 11 (9-16) mg/dL Creatinine 1.00 0.98 (0.5-1.4) mg/dL Estim Creat Clear Calc 75.8 77.4 Estimated GFR > 60 > 60 Random Glucose 87 86 (60-115) mg/dL Calcium 8.4 8.3 L (8.4-10.2) mg/dL Magnesium 2.0 (1.6-2.6) mg/dL Total Bilirubin 0.2 (0.0-1.0) mg/dL AST 26 (5-31) U/L ALT 21 (0-31) U/L Alkaline Phosphatase 61 (39-117) U/L Total Protein 7.6 (6.5-8.0) g/dL Albumin 4.3 (3.5-5.0) g/dL Independent Interpretation I performed an independent interpretation of an: EKG Interpretation: Mild tachycardia 102 beats per minute otherwise normal EKG no life-threatening arrhythmia or ischemia. External Record Review External record reviewed: Outpatient record Tests considered The following testing was considered but not selected: Have patient falling completely to the ground would have considered trauma CT imaging of head and potential body based on any injuries that would have resulted Chronic Conditions Patient?s care impacted by: Other (Epilepsy) Social Determinants Patient?s care significantly limited by Social Determinants of Health including: Other Social Determinant of Health Discharge Plan Discharge Clinical Impression: Seizure Patient Disposition: Home, Self-Care Instructions: Nonepileptic Seizures (DC) Additional Instructions: You were seen in the emergency department today following an episode of a witnessed seizure without any complete fall to the ground. You had labs done to see if there was any electrolyte imbalance other better explanation for your seizure-like activity. no acute findings today suspect seizure Patient must be with responsible adult at all times, no swimming alone, no taking baths (showers are okay), cooking over open flame please call her doctor or neurologist tomorrow. return for any further seizure activity Prescriptions: No Action acetaminophen 325 mg tablet 650 mg PO Q6H PRN (Reason: for pain, cramps, fever >101) Qty: 30 5RF cholecalciferol (vitamin D3) 50 mcg (2,000 unit) capsule 50 mcg PO DAILY Qty: 90 1RF levetiracetam 1,000 mg tablet extended release 24 hr 500 mg PO ONCE quetiapine 300 mg tablet extended release 24 hr 300 mg PO BEDTIME Nortrel 1/35 (28) 1-35 mg-mcg tablet 1 tab PO DAILY nystatin 100,000 unit/gram powder 1 appl topical DAILY PRN (Reason: rash) Qty: 60 1RF clobetasol 0.05 % cream 1 appl topical BID 14 Days Qty: 15 0RF topiramate [Topamax] 200 mg tablet 200 mg PO BID melatonin 3 mg capsule 6 mg PO BEDTIME PRN Referrals: dr. pablo [Other] Referral Note: Neurology follow up, call yours to schedule Interventions: ED Discharge Assessment Last Done: 03/11/25 17:26 Discharge Date/Time: 03/11/25 17:32 Print Language: Welsh
[2025-03-11 10:16] LABS: MANUAL DIFF FLAG NO
[2025-03-11 10:20] LABS: Hematocrit 38.6 % (37.0-47.0); Hemoglobin 12.6 g/dl (12.0-16.0); Imm Gran Abs Auto 0.02 X10*3/uL (0.00-0.03); Imm Gran Pct Auto 0.2 % (0.0-0.4); Lymphocytes Absolute Auto 2.3 X10*3/uL (1.2-4.9); Mean Corpuscular HGB Conc 32.6 g/dl (31.0-35.0); Mean Corpuscular Hemoglobin 30.6 pg (27.0-33.0); Mean Corpuscular Volume 93.7 fL (80.0-98.0); NRBC Abs Auto 0.000 X10*3/uL (0.0-0.012); NRBC Pct Auto 0.0 /100WBC (0.0-0.2); Platelet Count 292 X10*3/uL (160-400); Red Blood Count 4.12 X10*6/uL (4.20-5.50); White Blood Count 8.0 X10*3/uL (4.8-10.8)
--- NOTE | 2025-03-11 10:21 | ECG_ITS ---
Test Reason : SIEZURE Blood Pressure : */* mmHG Vent. Rate : 102 BPM Atrial Rate : 102 BPM P-R Int : 146 ms QRS Dur : 86 ms QT Int : 348 ms P-R-T Axes : 51 64 28 degrees QTcB Int : 453 ms Sinus tachycardia Otherwise normal ECG When compared with ECG of 24-Aug-2024 09:48, No significant change was found Referred By: Little Bhardwaj Electronically Signed By: ROSA MARIA MACEDO MD
[2025-03-11 10:37] LABS: Alanine Aminotransferase 21 U/L (0-31); Albumin Level 4.3 g/dL (3.5-5.0); Alkaline Phosphatase 61 U/L (39-117); Anion Gap 16 (12-20); Aspartate Amino Transferase 26 U/L (5-31); Blood Urea Nitrogen 14 mg/dL (9-16); Calcium 8.4 mg/dL (8.4-10.2); Carbon Dioxide 13 mmol/L (22-29); Chloride 115 mmol/L (96-108); Creatinine Clr Calc Pharmacy 75.8; Estimated Glomerular Filt Rate > 60; Magnesium 2.0 mg/dL (1.6-2.6); Potassium 4.0 mmol/L (3.3-5.1); Sodium 140 mmol/L (135-145); Total Protein 7.6 g/dL (6.5-8.0)
[2025-03-11] MEDS: diazePAM 10 MG/2 ML CARTRIDGE 5 MG IVPUSH (10:48)
--- OUTSIDE RECORDS SUMMARY | 2025-03-11 11:37 | XMS_ITS | Clinical Summary ---
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 4 Active norethindrone (ALDA,ROHINI,H EATHER,MICRONOR ) 0.35 mg tablet Take 1 Tablet by mouth every morning. 4 Active QUEtiapine XR (SEROquel XR) 300 mg 24 hr tablet Take 1 Tablet by mouth at bedtime. Mandi Bolivar Active topiramate (TOPAMAX) 200 mg tablet Take 1 Tablet by mouth 2 times daily. Mandi Bolivar [facility] 3 Active acetaminophen (TYLENOL) 325 mg tablet TAKE 2 TABLETS BY MOUTH EVERY 8 HOURS NEEDED FOR PAIN 180 tablet 5 Active clotrimazole (LOTRIMIN) 1 % cream Apply topically 2 (two) times a day. 30 g 3 5 Active Active Problems Problem Noted Date Diagnosed Date Hirsutism 10/04/2023 Bipolar 1 disorder (CMS/HCC V24, CMS/HCC V28) Generalized headaches 03/15/2023 Overview (07/04/2024): since 07/2020 when started the CHC pill, switched to progestin only Seizure ([facility] [place] [place] V24, [facility] [place] [place] V28) 03/15/2023 Large breasts 04/08/2019 Chronic bilateral low back pain without sciatica 07/20/2017 Lumbar disc herniation 07/20/2017 Encounters Date Type Department Care Team Description 01/23/2025 Telephone Adult Medicine [address] [phone] Samara Bolden ND 12/23/2024 12:45 PM EDT Office Visit Adult Medicine [address] [phone] Malia Nieto PA Seizure ([facility] [place] [place] V24, [facility] [place] [place] V28) (Primary Dx); Intertrigo; Generalized headaches from Last 3 Months Immunizations Name Administration Dates Next Due COVID-19 (Moderna/Spikevax) 12yo and older 08/13 Influenza Quadravalent, MDCK , 0.5ml, preservative free (Flucelvax) 6mo and older 10/23/2023 Influenza trivalent, 0.5mL, preservative free (Fluarix; FluLaval; Fluzone) ages 6mo and older (Afluria) 3 years and older 05/28/2024 Pfizer SARS-CoV-2 COVID-19, mRNA, LNP-S, preservative free 08/12/2022 Tdap Tetanus diptheria acell ular pertussis (Boostrix; Adacel) 7yo and older 10/11/2018 Surgical History Surgery Date Site/Laterality Comments OTHER SURGICAL HISTORY PROCEDURE: DENIES PREVIOUS SURGERY Medical History Medical History Date Comments Bipolar 1 disorder ([facility] [place] [place] V24, [facility] V28) DX:Bipolar 1 disorder (HCC) Seizure ([facility] [place] [place] V24, [facility] V28) DX:Seizure (HCC) Generalized headaches DX:General ized headaches; COMMENT: since 07/2020 when started the CHC pill, switched to progestin only Family History Medical History Relation Name Comments Bipolar disorder Mother Other: unknown Other Relation Name Status Comments Mother Other Social History Tobacco Use Types Packs/Day Years Used Date Smoking Tobacco: Former Smokeless Tobacco: Never Tobacco Cessation:Counseling Given: Not Answered Alcohol Use Standard Drinks/Week Comments Yes 0 (1 standard drink = 0.6 oz pur e alcohol) Comments Unknown Sex and Gender Information Value Date Recorded Sex Assigned at Not on file Legal Sex Female 5:33 PM EST Gender Identity Not on file Sexual Orientation Not on file Obstetrics History Last Filed Vital Signs Vital Sign Reading Time Taken Comments Blood Pressure 110/70 12/23/2024 12:48 PM EDT Pulse 96 12/23/2024 12:48 PM EDT Temperature 36.5 C (97.7 F) 12/23/2024 12:48 PM EDT Respiratory Rate 14 12/23/2024 12:48 PM EDT Oxygen Saturation - - Inhaled Oxygen Concentration - - Weight 95 kg (209 lb 6.4 oz) 12/23/2024 12:48 PM EDT Height 154.9 cm (5' 1 ) 12/23/2024 12:48 PM EDT Body Mass Index 39.57 12/23/2024 12:48 PM EDT Plan of Treatment Upcoming Encounters Date Type Department Care Team (Late st Contact Info) Description 07/01/2025 4:00 PM EDT Office Visit Adult Medicine [address] [phone] Jennifer Cordova MD [address] [place] [phone] Health Maintenance Due Date Last Done Comments Hepatitis B Vaccines (3 of 3 - 3-dose series) 1993 1993, 1993 Depression Screening 08/20/2022 Medicare Annual Wellness Visit 08/20/2022 Social Influencers of Health Screening 08/20/2022 COVID-19 Vaccine ( season) 2024 08/13/2022, 08/12/2022, 08/31/2021, Additional history exists Cervical Cancer Screening: HPV 01/21/2027 01/21/2022 DTaP,Tdap,and Td Vaccines (4 - Td or Tdap) 10/11/2028 10/11/2018, 02/05/2010, 02/28/2005, Additional history exists Cholesterol Screening (Lipid Panel) 02/21/2029 02/22/2024, 02/22/2024 HIB Vaccines Aged Out 1993, 09/1992, 1993 No longer eligible based on patient's age to complete this topic MMR Vaccines Completed 11/09/1997, 04/11/1994 IPV Vaccines Completed 12/06/1997, 09/1993, 1993, Additional history exists HPV Vaccines Completed 08/06/2007, 03/12, 02/01/2007 Varicella Vaccines Completed 02/02/2009, 02/27/2005 Meningococcal ACWY Vaccine Completed 02/03/2009 Hepatitis A Vaccines Aged Out 04/21/2015, 04/10/20 14 No longer eligible based on patient's age to complete this topic HIV Screening Completed 03/01/2023 Hepatitis C Screening Completed 03/01/2023 Influenza Vaccine Completed 05/28/2024, , 07/28/2022, Additional history exists Meningococcal B Vaccine Aged Out No l onger eligible based on patient's age to complete this topic Pneumococcal Vaccine: Pediatrics (0 to 5 Years) and At-Risk Patients (6 to 64 Years) Aged Out No longer eligible based on patient's age to complete this topic RSV Immunization Patients Under 20 months Aged Out No longer eligible based on patient's age to complete this topic Procedures Procedure Name Priority Date/Time Associated Diagnosis Comments LIPID PANEL Routine 02/22/2024 HEPATITIS C SCREENING Routine 03/01/2023 HIV SCREENING Routine 03/01/2023 HPV Routine 01/21/2022 from Last 3 Months or Most Recently Relevant to Health Maintenance Results * (ABNORMAL) Lipid panel (02/22/2024) LDL/HDL Ratio 5(A) 0 - 4 Triglycerides 252(A) 0 - 150 mg/dL Cholesterol 183 0 - 200 mg/dL HDL 37(A) >=40 mg/dL LDL Cholesterol 96 0 - 100 mg/dL Blood Venous blood specimen / Unknown [facility] Provider LAB BLOOD ORDERABLES Chen l Result * HIV Screening (03/01/2023) Pathologist [facility] HIV Screening Abstracted [facility] Provider HEALTH MAINTENANCE Final Result * Hepatitis C Screening (03/01/2023) Pathologist [facility] Hepatitis C Screening Abstracted [facility] Provider HEALTH MAINTENANCE Final Result * Cervical Cancer Screening: HPV (01/21/2022) Pathologist [facility] Cervical Cancer Screening: HPV Abstracted, no interpretation [facility] Provider HEALTH MAINTENANCE Final Result from Last 3 Months or Most Recently Relevant to Health Maintenance Insurance [employer] MED[employer]ARE ADVANTAGE [place] Care Teams 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
[2025-03-11 14:07] VITALS: BP 114/72; PULSE 97; RESP 14; TEMP 36.6; O2SAT 100
[2025-03-11 16:16] LABS: Anion Gap 10 (12-20); Blood Urea Nitrogen 11 mg/dL (9-16); Calcium 8.3 mg/dL (8.4-10.2); Carbon Dioxide 20 mmol/L (22-29); Chloride 114 mmol/L (96-108); Creatinine Clr Calc Pharmacy 77.4; Estimated Glomerular Filt Rate > 60; Potassium 4.2 mmol/L (3.3-5.1); Sodium 140 mmol/L (135-145)
[2025-03-11 16:45] VITALS: BP 117/75; PULSE 97; RESP 17; O2SAT 98
[2025-03-11 17:26] VITALS: BP 117/75; PULSE 97; RESP 17; TEMP 36.8; O2SAT 98
== END 2025-03-11 17:32 | disposition home or self-care (01) ==
PROVIDERS: Physician Assistant Medical; Emergency Provider Emergency Medicine Emergency Medical Services
DX: R56.9 Unspecified convulsions (principal); R00.0 Tachycardia, unspecified; Z79.899 Other long term (current) drug therapy
CPT/HCPCS: 36415; 80048; 80053; 83735; 85025; 93005; 96374; 99284; J3360

== ENCOUNTER → 2025-03-11 10:21 | Outpatient (BNV) | payer MEDICARE, MEDICAID, SELFPAY | PROVIDERS: Emergency Provider Emergency Medicine Emergency Medical Services; Visit Provider Internal Medicine Cardiovascular Disease | DX: R00.0 Tachycardia, unspecified (principal) | CPT/HCPCS: 93010 ==